=== PATIENT | male | born 1980 | race Two or more races ===

== ENCOUNTER 2019-10-18 09:58 | Emergency (ER) | payer BC ==
--- NOTE | 2019-10-18 10:20 | NUR ---
C/O lac to right neck from blade while cutting wood. Bleeding controlled. Unknown if TDAp is up to date. Friend at bedside. NAD. Will continue to monitor.
[2019-10-18] MEDS ORDERED: LIDOCAINE-MPF 2% ,5ML ONE ×3 (10:22→11:00)
[2019-10-18] MEDS ORDERED: DIPH,PERTUSS(ACELL),TET VAC/PF 0.5 ML IM-VACC ONE ×2 (10:23→10:30)
[2019-10-18] MEDS ORDERED: LIDOCAINE 2%, 20ML SQ ONE (10:30)
[2019-10-18] MEDS ORDERED: PLEASE ENTER HEIGHT AND WEIGHT MC SCH (11:00)
--- NOTE | 2019-10-18 11:15 | NUR ---
SELINA Younger at bedside suturing patient. No needs.
[2019-10-18] MEDS ORDERED: NEOSPORIN OINT. PKT 1 PACKET ONE (11:46)
--- NOTE | 2019-10-18 11:55 | NUR ---
Patient/Caregiver given discharge instructions and they have confirmed that they understand the instructions. Patient ambulatory with steady gait.
[2019-10-18 11:56] VITALS: BP 128/74
== END 2019-10-18 11:58 | disposition home or self-care (01) ==
LOC: ED 11:45
DX: S11.91XA Laceration without foreign body of unspecified part of neck, initial encounter (principal); S21.111A Laceration without foreign body of right front wall of thorax without penetration into thoracic cavity, initial encounter; X58.XXXA Exposure to other specified factors, initial encounter; Y93.89 Activity, other specified; Y92.89 Other specified places as the place of occurrence of the external cause; Y99.8 Other external cause status
CPT/HCPCS: 12004; 90471; 90715; 99283; 99284